=== PATIENT | female | born 1980 | race Caucasian/White ===

== ENCOUNTER 2025-09-14 10:31 | Emergency (ER) | payer BC, SELFPAY ==
[2025-09-14 10:38] VITALS: BP 169/109
[2025-09-14 11:02] LABS: Urine Character Clear (Clear)
--- NOTE | 2025-09-14 11:33 | ED.GENMED ---
History of Present Illness
General
Chief Complaint: Urinary Symptoms
Source: patient
Exam Limitations: none
Time Seen by Provider: 09/14/25 10:55
History of Present Illness
History of Present Illness:
Patient is a 45-year-old female who denies significant past medical history who presents to the emergency department for evaluation of urinary complaints. Patient reports that she was out of the country in [place] for work last week. She reports
that she had 2 episodes of sharp sudden onset left flank pain. Patient reports she has not had another episode since last week. Patient reports that a few days later, she developed symptoms consistent with a urinary tract infection including
urinary frequency and urgency. Patient went to urgent care and they told her that she may have a UTI. They prescribed her a course of cephalexin 500 mg twice daily which she took. Patient reports that she had some initial improvement in her
symptoms but then they worsened again. Patient returned to the urgent care where they told her that her urine culture was negative. They rechecked a urinalysis though and said that there was still evidence of a mild infection. Therefore they
started her on a course of ciprofloxacin. Patient has been taking that for the past 4 days twice daily. Patient reports that it was feeling better up until last night when she once again developed bladder discomfort associate with urinary urgency
and frequency. Patient finally decided to come to the emergency department this morning for further evaluation. Patient denies fevers or chills. She denies nausea or vomiting. She denies diarrhea or constipation. Patient denies concern for
today, states that she is currently on her menses. Patient denies any usual vaginal discharge or concern for sexual transmitted infection today patient has been taking ibuprofen for pain with some improvement. Patient denies any history
of recurrent urinary tract infections, kidney infection, or kidney stone in the past.
Past History
Past History
ED Past Medical History: Other (GA[employer])
ED Past Surgical History: Appendectomy and Cholecystectomy
Social History
Tobacco: Non-smoker
Alcohol: None
Drug: None
Personal:
Living: with family
Employment: Employed
Family History
Family History: Other (Noncontributory)
Review of Systems
Review of Systems
Allergies reviewed?: Yes
All Other Systems: ROS reviewed and negative except as documented in HPI and ROS
Constitutional: Denies fever or chills
EENT: Reports no symptoms
Respiratory: Reports no symptoms
Cardiac: Reports no symptoms
ABD/GI: Reports no symptoms
: Reports frequency, flank pain and urgency
Musculoskeletal: Reports no symptoms
Skin: Reports no symptoms
Neurological: Reports no symptoms
Endocrine: Reports no symptoms
Hematologic/Lymphatic: Reports no symptoms
Psychiatric: Reports no symptoms
Phy Exam
General Physical Exam
General Presentation: well appearing and no apparent distress
General Skin: warm and dry
General Habitus: normal
General Mental: alert
General Hydration: appears well hydrated
ENT Exam
ENT Exam: EOMI, pharynx normal, neck supple and normocephalic
Eye Exam
Eye Exam: PERRL, cornea clear and conjunctiva normal
Cardiovascular Exam
Cardiovascular Exam: regular rate/rhythm, no edema, no murmur and normal peripheral pulses
Pulmonary Exam
Pulmonary Exam: lungs clear, no respiratory distress, no rales, no crackles, no rhonchi, no stridor, no wheezing and no cough
Gastrointestinal Exam
Gastrointestinal Exam: normal bowel sounds, non tender, soft, no organomegaly, no pulsatile mass, non distended and no cva tenderness
Neurological Exam
Neurological Exam: alert, oriented x3, no motor deficits and speech normal
Musculoskeletal Exam
Musculoskeletal Exam: full ROM and no edema
Skin Exam
Skin Exam: normal color, warm/dry, no rash and no petechia
Psychiatric Exam
Psychiatric Exam: normal mood/affect
Course
Orders/Labs/Results
Orders:
Orders
09/14/25 10:51
Urinalysis Reflex To Culture Urgent
Date Specimen was Collected: 09/14/25
Time Specimen was Collected: 10:45
Urine Microscopic Reflex Cult Urgent
Urine Culture Urgent
REY Source: U
Specimen Description:
Date Specimen was Collected: 09/14/25
Time Specimen was Collected: 10:45
09/14/25 11:24
Complete Blood Count/With Diff Urgent
Comprehensive Metabolic Panel Urgent
HCG, Serum Qualitative Screen Urgent
Test Result ONCE
09/14/25 11:33
CT Abd/pelvis W Iv Cont Urgent
Comment:
Reason For Exam: dysuria, hematuria,persistent UTI, left flank pain
Abnormal Lab Results
09/14/25 09/14/25
10:51 11:24
Immature Gran % 0.6 H %
(0-0.5)
BUN 18 H mg/dl
(7-17)
Glucose 107 H mg/dl
(70-99)
Total Bilirubin 1.6 H mg/dl
(0.2-1.3)
Ur Occult Blood Reflex 4+ A
(Negative)
Urine Nitrite (Reflex) Positive A
(Negative)
Urine Bilirubin 2+ A
(Negative)
Urine Urobilinogen 2+ A
(Neg - 1+)
Urine RBC 30-40 A /HPF
(0-2)
Urine Bacteria (Reflex) Few A
(Negative)
Urine Albumin (Reflex) 2+ A
(Neg - Trace)
09/14/25 11:24
09/14/25 11:24
Vital Signs
Initial and Last Documented VS:
Initial Vital Signs
Temp Pulse Resp BP Pulse Ox
97.6 F 112 18 169/109 98
09/14/25 10:38 09/14/25 10:38 09/14/25 10:38 09/14/25 10:38 09/14/25 10:38
Last Documented Vital Signs
Temp Pulse Resp BP Pulse Ox
97.6 F 76 18 141/94 94
09/14/25 10:38 09/14/25 14:48 09/14/25 14:48 09/14/25 14:48 09/14/25 14:48
*Pulse Oximetry
SaO2: 98
Oxygen Mode of Delivery: Room air
Patient hypoxic: no
*Critical Care Note
Total Time (30-74mins, 75-104mins- exclusive of procedures): Not Applicable
Update Note
Update Note:
Patient is a 45-year-old female without significant past medical history who presents to the emergency department for evaluation of urinary symptoms. Patient did have some left flank pain while she was traveling recently but none currently.
Patient denies systemic symptoms such as fevers or chills. Patient denies any vomiting or change in her bowel habits. On arrival, patient is hypertensive, afebrile. On examination, patient is very well-appearing, she has no CVA tenderness, she
has benign abdomen. Initial urine dip is notable for large blood as well as nitrates. Labs were obtained, patient has no leukocytosis, T. bili slightly elevated at 1.6, patient has no right upper quadrant tenderness, nausea, or vomiting therefore
do not feel that this is actionable today, patient is hCG negative, urine microscopy is not consistent with infection. CT of the abdomen and pelvis demonstrates a 4 mm ureteral calculus at the left UVJ. Case was discussed with ED attending,
patient is currently on a course of antibiotics, do not feel the need to provide the patient with additional antibiotics, but will have finish them. Will have the patient take tamsulosin, along with ibuprofen and Tylenol if needed for pain. Will
also have the patient strain her urine. Patient is safe for discharge to home with instructions on supportive care measures, outpatient urology follow-up, strict return precautions. Patient and her expressed understanding of the plan and
agreed.
ED Attending Note
-
Portions of this chart may have been created with voice recognition software.� Occasional wrong word or��sound alike� substitutions may have occurred due to the inherent limitations of voice recognition software.
Discharge Plan
Departure
Patient Disposition: Home (Routine Discharge)
Date of Disposition: 09/14/25
Time of Disposition: 14:34
Patient with high blood pressure during this ER visit?: No
Condition: Good
Covid-19: Not Applicable
Discharge Problem:
Calculus of left ureter
Instructions: How to Strain Your Urine, Kidney stones in adults - ED (DC)
Prescriptions:
New
tamsulosin [Flomax] 0.4 mg capsule
0.4 mg PO DAILY 30 Days Qty: 30 0RF
No Action
levothyroxine 150 MCG tablet
150 mcg PO DAILY
drospirenone-e.estradiol-lm.FA [Beyaz] 1 EACH tablet
1 ea PO DAILY
ibuprofen 600 MG tablet
600 mg PO Q6 PRN (Reason: pain) Qty: 20 0RF
loperamide 2 MG capsule
2 mg PO Q6HPRN PRN (Reason: diarhea) Qty: 10 0RF
hydrocodone-acetaminophen 1 TABLET tablet
1 tab PO Q4HPRN PRN (Reason: pain) Qty: 10 0RF
Referrals:
Lm Franco MD [Active, Urology] - Follow up in 1 week
UNKNOWN - PT DOES,NOT KNOW [Family Provider]
Activity Restrictions/Additional Instructions:
You were seen in the emergency department for evaluation of left flank and bladder pain. While you were in the emergency department your blood work did not show any dangerous abnormalities. Your urine studies did not show evidence of infection.
Your CT scan demonstrates a 4 mm stone at your left ureterovesicular junction. We recommend that you drink plenty of water to try to pass this to pass this. You may take ibuprofen 600 mg every 6 hours for pain and inflammation. You may add on
Tylenol 650 mg every 4 hours if needed for additional pain relief, not to exceed 3000 mg in any 24-hour period. You are also being prescribed tamsulosin to further help you pass your stone. Please strain your urine and collect the stone if
possible. If you do not pass the stone within the next 2 to 3 weeks, please follow-up with urology for further evaluation and treatment. Please return to the emergency department if you develop increasing pain, persistent vomiting, fever greater
than 100.4 �F, or for any other worsening or concerning symptoms.
Interventions
Interventions:
*Risk Screen - Suicide Last Done: 09/14/25 10:38
*General Assessment Last Done: 09/14/25 10:38
*Neglect/Abuse Screening Last Done: 09/14/25 10:38
*ED- Fall Risk Assessment Last Done: 09/14/25 13:54
*ED COVID-19 Vaccine History Last Done: 09/14/25 10:38
*ED Influenza Vaccine History Last Done: 09/14/25 10:38
*Nursing Disposition Last Done: 09/14/25 14:48
ED-Female Genitourinary Assessment Last Done: 09/14/25 11:29
Discharge Date and Time
Discharge Date/Time: 09/14/25 14:49
Print Language: ZAMBIAN
[2025-09-14 11:42] LABS: Hematocrit 39.9 % (37.0-47.0); Hemoglobin 13.7 g/dL (12.0-16.0); Mean Corp Hgb Conc. 34.3 g/dL (33.0-37.0); Mean Corpuscular Volume 85.8 fL (81.0-99.0); Nucleated Red Blood Cells % 0 %; Platelet Count 221 10^3/uL (130-400); Red Cell Dist. Width 11.9 % (11.5-14.5)
[2025-09-14 11:54] LABS: HCG, Serum Qualitative Screen Negative
[2025-09-14 11:59] LABS: ALT (SGPT) 20 U/L (0-35); AST (SGOT) 27 U/L (14-36); Albumin 4.7 g/dl (3.5-5.0); Alkaline Phosphatase 61 U/L (38-126); Blood Urea Nitrogen 18 mg/dl (7-17); Calcium 9.3 mg/dl (8.4-10.2); Carbon Dioxide 25 mmol/L (22-30); Chloride 107 mmol/L (98-107); Glucose 107 mg/dl (70-99); Potassium 3.7 mmol/L (3.5-5.1); Sodium 136 mmol/L (135-145); Total Protein 7.6 g/dl (6.3-8.2); eGFR > 60.00
[2025-09-14 12:13] LABS: Urine Red Blood Cell 30-40 /HPF (0-2); Urine Squamous Cell 16-20 /LPF (Few)
[2025-09-14 12:59] VITALS: BP 132/84
[2025-09-14 14:48] VITALS: BP 141/94
== END 2025-09-14 14:49 | disposition home or self-care (01) ==
LOC: EMR 10:31
PROVIDERS: Emergency Medicine; Physician Assistant Medical; EMERGENCY PHYSICIAN Emergency Medicine
DX: N20.1 Calculus of ureter (principal); Z90.49 Acquired absence of other specified parts of digestive tract
CPT/HCPCS: 99284; 74177; 80053; 81003; 81015; 84703; 85025; 87086; Q9967